=== PATIENT | male | born 1960 | race Caucasian/White ===

== ENCOUNTER 2018-06-22 08:17 | Observation (INO) ==
--- NOTE | 2018-06-22 08:26 | Emergency Department Note ---
Disposition Clinical Impression: Acute urinary retention Acute renal failure Qualifiers: Acute renal failure type: unspecified Qualified Code(s): N17.9 - Acute kidney failure, unspecified Disposition: Admitted As Inpatient Condition: Good Referrals: Meche Toribio MD [Family Provider] - Sudarshan Carpenter MD [Partnered Physician] - (Call for recheck for either Tuesday or early next week. Graff catheter will remain with a leg bag until this recheck.) Forms: ED Satisfaction Letter Time of Disposition: 09:38 General Adult HPI - General Chief complaint: ED General Medical Stated complaint: UTI Time Seen by Provider: 06/22/18 08:31 Source: patient Mode of arrival: private vehicle Limitations: no limitations Nursing Notes Reviewed: Yes Vital Signs Reviewed: Yes - History of Present Illness HPI Narrative: Patient relates for about 6 days he has had some frequency and urgency with urination. With this he has had a feeling of frequency and urgency of urination and ultimately incontinence. He states that he is "dribbling all the time". He reports a feeling of pressure to urinate and the pain he feels is a "fullness" in his lower abdomen that radiates towards the flanks. Denies any trouble like this before. He denies a fever or nausea or vomiting. Denies any diarrhea but states he has not moved his bowels for about 4 days. States he is passing gas. Denies weakness, dizziness or diaphoresis. He is noted that his lower abdomen is getting more full and firm. Denies any other recent change of medications other than he went to urgent care 6 days ago and was started on Cipro for possible UTI. Onset (ago): day(s) (6) Location: abdomen Radiation: flank Pain Severity: moderate Quality: aching, other (Pressure) Consistency: constant, Worsening Improves with: nothing Worsens with: other (Urination) Associated symptoms: Denies: confusion, chest pain, cough, diaphoresis, fever/ chills, headaches, loss of appetite, malaise, nausea/vomiting, rash, seizure, shortness of breath, syncope, weakness Treatments Prior to Arrival: other (Antibiotics) - Related Data Home Medications Medication Instructions Recorded Confirmed Ciprofloxacin HCl [Cipro] 500 mg PO BID 06/22/18 06/22/18 Lisinopril [Zestril] 10 mg PO DAILY 06/22/18 06/22/18 Montelukast [Singulair] 10 mg PO DAILY 06/22/18 06/22/18 Allergies Allergy/AdvReac Type Severity Reaction Status Date / Time naproxen [From Naprosyn] Allergy Anaphylaxis Verified 06/22/18 08:19 All systems ED: reviewed and negative except as stated. Past Medical History - Past Medical History Attestation: Yes The following information was validated with the patient. Source: patient, old records reviewed, nursing notes reviewed Medical history: Reports: arthritis (DJD, rheumatoid arthritis), COPD, GERD, hyperlipidemia (Diet-controlled), hypertension, kidney stones, migraine, seizures (All seizure medicine and seizure-free greater than 10 years), other ( Benign prostatic hypertrophy). Denies: coronary artery disease, DVT, diabetes, pulmonary embolus Surgical history: Reports: tonsilectomy, other (Colonic polypectomy, lymph node excision). Denies: angioplasty/stent (Cardiac catheter 2009, normal) Psychiatric history: Reports: no psych history - Social History Smoking Status: Former smoker Alcohol use: Reports: none Drug use: Reports: none Physical Exam - General Limitations: no limitations General appearance: alert, in no apparent distress - Head Head exam: atraumatic, normocephalic, normal inspection - Eye Eye exam: Present: normal appearance, PERRL, EOMI. Absent: scleral icterus, conjunctival injection - ENT ENT exam: normal exam, normal oropharynx, mucous membranes moist - Neck Neck exam: Present: normal inspection, full ROM, trachea midline - Chest Chest inspection: Present: normal inspection, symmetric chest wall rise - Respiratory Respiratory exam: Present: normal lung sounds bilaterally. Absent: respiratory distress, wheezes, prolonged expiratory phase - Cardiovascular Cardiovascular exam: Present: regular rate, normal rhythm, normal heart sounds. Absent: tachycardia - Abdominal Exam Abdominal exam: Present: soft, tenderness (Suprapubic), normal bowel sounds, mass (Patient is firm across lower abdomen up to the area of the umbilicus. This feels most consistent with an enlarged/distended bladder.). Absent: distention, guarding, rebound, rigidity, Deluca's sign, tenderness at McBurney' s Point, pulsatile mass, hernia - Extremities Exam Extremities exam: Present: normal inspection, full ROM, normal capillary refill. Absent: tenderness, pedal edema - Expanded Lower Extremity Exam Neurovascular/Tendon exam: Present: normal capillary refill. Absent: motor deficit, sensory deficit, tendon deficit Gait: observed and normal - Back Exam Back exam: Present: normal inspection, full ROM. Absent: tenderness, CVA tenderness (R), CVA tenderness (L) - Neurological Exam Neurological exam: Present: alert, oriented X3, normal gait - Psychiatric Psychiatric exam: Present: normal affect, normal mood - Skin Skin exam: Present: warm, dry, intact, normal color. Absent: diaphoresis, pallor Course Course Narrative: 0840: Patient was able to produce a small urine sample for us. Subsequent to this, a bladder scan records greater than 1000 mL of retained urine. A Graff catheter has been ordered and baseline CBC and chemistries to assess his renal function. 0935: Patient does demonstrate acute renal failure likely secondary to the obstructive uropathy. I recommended we start IV fluids, observed and rechecked chemistries tomorrow morning to show that he is showing improvement. Given his acute renal failure, his ciprofloxacin has been held. He should have an adequate circulating concentration to provide coverage for the next couple days. A page has been placed to Dr. Durbin for this purpose. Vital Signs Temperature 98.6 F 06/22/18 08:21 Pulse Rate 90 06/22/18 08:21 Respiratory Rate 16 06/22/18 08:21 Blood Pressure 136/84 06/22/18 08:21 O2 Sat by Pulse Oximetry 95 06/22/18 08:21 Temperature 98.6 F 06/22/18 08:21 Pulse Rate 90 06/22/18 08:21 Respiratory Rate 16 06/22/18 08:21 Blood Pressure 136/84 06/22/18 08:21 O2 Sat by Pulse Oximetry 95 06/22/18 08:21 Oxygen Delivery Oxygen Delivery Room Air Medical Decision Making - Medical Records Medical records reviewed: Yes I reviewed the patient's medical records. - Lab Data Lab results reviewed: Yes I reviewed the patient's lab results. Result diagrams: 06/22/18 09:07 06/22/18 09:07 Lab Results 06/22/18 06/22/18 06/22/18 Range/Units 08:40 09:07 09:07 WBC 14.6 H (4.3-11.1) K/mcL RBC 4.84 (4.19-5.50) M/mcL Hgb 14.1 (12.9-16.9) g/dL Hct 40.4 (37.5-50.1) % MCV 83.5 (83.0-100.0) fL MCH 29.1 (28.0-33.3) pg MCHC 34.9 (31.6-35.5) g/dL RDW 12.8 (11.5-14.5) % Plt Count 241 (140-400) K/mcL MPV 8.7 L (9.4-12.4) fL Immature Gran % 0.9 (0-4) % Seg Neutrophils % 85.9 % Lymphocytes % 3.9 % Monocytes % 8.4 % Eosinophils % 0.5 % Basophils % 0.4 % Neutrophils # 12.5 H (1.6-8.9) K/mcL Lymphocytes # 0.6 (0.6-4.6) K/mcL Monocytes # 1.2 (0.0-1.3) K/mcL Eosinophils # 0.1 (0.0-0.6) K/mcL Basophils # 0.1 (0.0-0.2) K/mcL Sodium 131 L (136-145) mEq/L Potassium 4.4 (3.5-5.1) mEq/L Chloride 96 L (98-107) mEq/L Carbon Dioxide 24 (23-29) mEq/L BUN 50 H (6-20) mg/dL Creatinine 3.48 H (0.70-1.30) mg/dL Est GFR ( Amer) 22 L (> 60) Est GFR (Non-Af Amer) 18 L (> 60) BUN/Creatinine Ratio 14 (6-26) Glucose 125 H (70-105) mg/dL Calculated Osmolality 287 (280-300) Calcium 9.3 (8.6-10.3) mg/dL Urine Color Yellow (Yellow) Urine Clarity Turbid A (Clear) Urine pH 5.0 (5.0-8.0) pH Units Ur Specific [place] 1.015 (1.010-1.025) Urine Protein 30 H (Neg-Trace) mg/dL Urine Glucose (UA) 100 H (Normal) mg/dL Urine Ketones Negative (Negative) mg/dL Urine Blood Moderate H (Negative) Urine Nitrite Positive A (Negative) Urine Bilirubin Small H (Negative) Urine Urobilinogen Normal (Normal) mg/dL Ur Leukocyte Esterase Negative (Negative) Urine Microscopic RBC TNTC H (0-3) per hpf Urine Microscopic WBC 0-3 (0-3) per hpf Ur Squamous Epith Cells Few (None-Few) per lpf Urine Bacteria Few (None-Few) per hpf Ur Culture Indicated? YES A (NO)
[2018-06-22 08:44] LABS: Bilirubin,Urine Small (Negative); Blood,Urine Moderate (Negative); Clarity,Urine Turbid (Clear); Color,Urine Yellow (Yellow); Glucose,Urine (UA) 100 mg/dL (Normal); Ketones,Urine Negative (Negative); Leukocyte Esterase,Urine Negative (Negative); Nitrite,Urine Positive (Negative); Protein,Urine 30 mg/dL (Neg-Trace); Specific Gravity,Urine 1.015 (1.010-1.025); Urobilinogen,Urine Normal (Normal)
[2018-06-22 08:59] LABS: Bacteria,Urine Few per hpf (None-Few); RBC,Urine TNTC per hpf (0-3); Squamous Epithelial Cell,Urine Few per lpf (None-Few); WBC,Urine 0-3 per hpf (0-3)
[2018-06-22 09:16] LABS: Basophils # 0.1 K/mcL (0.0-0.2); Basophils % 0.4 %; Eosinophils # 0.1 K/mcL (0.0-0.6); Eosinophils % 0.5 %; Hematocrit 40.4 % (37.5-50.1); Hemoglobin 14.1 g/dL (12.9-16.9); Immature Granulocytes % 0.9 % (0-4); Lymphocytes # 0.6 K/mcL (0.6-4.6); Lymphocytes % 3.9 %; Mean Corpuscular HGB Conc 34.9 g/dL (31.6-35.5); Mean Corpuscular Hemoglobin 29.1 pg (28.0-33.3); Mean Corpuscular Volume 83.5 fL (83.0-100.0); Mean Platelet Volume 8.7 fL (9.4-12.4); Monocytes # 1.2 K/mcL (0.0-1.3); Monocytes % 8.4 %; Neutrophils # 12.5 K/mcL (1.6-8.9); Platelet Count 241 K/mcL (140-400); Red Blood Count 4.84 M/mcL (4.19-5.50); Red Cell Distribution Width 12.8 % (11.5-14.5); Segmented Neutrophils % 85.9 %
[2018-06-22 09:31] LABS: Calcium 9.3 mg/dL (8.6-10.3); Potassium 4.4 mEq/L (3.5-5.1)
[2018-06-22] MEDS ORDERED: 0.9 % Sodium Chloride 1,000 ML IVC ONE (09:35)
[2018-06-22] MEDS ORDERED: 0.9 % Sodium Chloride 1,000 ML IVC SCH (09:45)
[2018-06-22] MEDS ORDERED: Naloxone 0.4 MG/ML INJ IVP PRN (11:58)
[2018-06-22] MEDS ORDERED: 0.9 % Sodium Chloride 1,000 ML ONE (12:06)
[2018-06-22] MEDS: 0.9 % Sodium Chloride 1,000 ML IVC SCH ×2 (12:21→20:58)
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
[2018-06-22] MEDS ORDERED: Albuterol 2.5 MG/3 ML NEBULIZER IH PRN (17:31)
[2018-06-22] MEDS: cefTRIAXone 1,000 MG in Water for inj. (sterile) 20 ML 10 ML IVP SCH (18:30)
[2018-06-22] MEDS ORDERED: Acetaminophen 325 MG TABLET PO PRN (19:43)
[2018-06-22] MEDS: Lactobacillus 1 EACH CAP.SPRINK PO SCH (20:59)
[2018-06-23] MEDS: 0.9 % Sodium Chloride 1,000 ML IVC SCH (05:14)
[2018-06-23 06:36] LABS: Basophils # 0.1 K/mcL (0.0-0.2); Eosinophils # 0.2 K/mcL (0.0-0.6); Eosinophils % 2.3 %; Hematocrit 35.2 % (37.5-50.1); Hemoglobin 11.9 g/dL (12.9-16.9); Immature Granulocytes % 1.3 % (0-4); Lymphocytes # 1.1 K/mcL (0.6-4.6); Lymphocytes % 12.7 %; Mean Corpuscular HGB Conc 33.8 g/dL (31.6-35.5); Mean Corpuscular Volume 85.6 fL (83.0-100.0); Mean Platelet Volume 9.1 fL (9.4-12.4); Monocytes # 0.9 K/mcL (0.0-1.3); Monocytes % 10.1 %; Neutrophils # 6.2 K/mcL (1.6-8.9); Platelet Count 206 K/mcL (140-400); Red Blood Count 4.11 M/mcL (4.19-5.50); Red Cell Distribution Width 13.1 % (11.5-14.5); Segmented Neutrophils % 72.6 %
[2018-06-23 06:57] LABS: BUN/Creatinine Ratio 19 (6-26); Blood Urea Nitrogen 24 mg/dL (6-20); Calcium 8.2 mg/dL (8.6-10.3); Carbon Dioxide 26 mEq/L (23-29); Chloride 106 mEq/L (98-107); Glucose 111 mg/dL (70-105); Osmolality,Calculated 291 (280-300); Potassium 4.2 mEq/L (3.5-5.1); Sodium 138 mEq/L (136-145); eGFR For Non-African Americans 58 (> 60)
[2018-06-23 06:59] LABS: Chol/HDL Ratio 5.1 (0-4.9)
[2018-06-23] MEDS: Lactobacillus 1 EACH CAP.SPRINK PO SCH (09:12)
[2018-06-23] MEDS: cefTRIAXone 1,000 MG in Water for inj. (sterile) 20 ML 10 ML IVP SCH (09:13)
--- NOTE | 2018-06-23 10:56 | Discharge Summary ---
Date of Encounter: 06/23/18 Time of Encounter: 10:45 - Discharge Diagnosis (1) Acute urinary retention Priority: Primary Status: Acute (2) Acute renal failure Priority: Secondary Status: Acute Qualifiers: Acute renal failure type: unspecified Qualified Code(s): N17.9 - Acute kidney failure, unspecified (3) COPD (chronic obstructive pulmonary disease) Priority: Secondary Status: Chronic Qualifiers: COPD type: unspecified COPD Qualified Code(s): J44.9 - Chronic obstructive pulmonary disease, unspecified (4) Hypertension Priority: Secondary Status: Chronic Qualifiers: Hypertension type: essential hypertension Qualified Code(s): I10 - Essential (primary) hypertension (5) Neutrophilic leukocytosis Priority: Secondary Status: Resolved Hospital course: Mr. Pérez is a 58 year old male who came to emergency room stating he had 6 day history of urinary frequency and urgency. He reports going to a local urgent care 3 days earlier and received a prescription for antibiotic for UTI. His symptoms did not improve so he came to emergency room today. He was found to have bladder distention with over 2000 mL's urine present on catheterization. He had azotemia with BUN and creatinine 50 and 3.48 respectively. He was admitted to [facility] floor for observation and ongoing care needs. Initial orders were written by the emergency room physician. I saw him on June 22 and performed a history and physical. He had significant improvement in azotemia with BUN and creatinine decreasing to 24 and 1.27 respectively with estimated GFR 58 by day of discharge. He was started on Rocephin empirically for leukocytosis with left shift. Leukocytosis normalized by the following day. He will continue with antibiotic and probiotic for 3 additional days at discharge. He will be started on Flomax. There were no other new problems and on June 23 I felt he was stable for discharge home. He will follow with urologist within 1 week. He will see his PCP Dr. Toribio within 1 week. - Time Spent with Patient Total time spent providing and/or coordinating discharge services: - Discharge Medications Prescriptions: Cefuroxime PO [Ceftin] 500 mg PO Q12HR #6 tablet Lactobacillus [Culturelle] 1 each PO BID #6 cap.sprink Tamsulosin [Flomax] 0.4 mg PO DAILY #30 cap.er.24h Home Medications: Ciprofloxacin HCl [Cipro] 500 mg PO BID 06/22/18 [History] Lisinopril [Zestril] 10 mg PO DAILY 06/22/18 [History] Montelukast [Singulair] 10 mg PO DAILY 06/22/18 [History] Cefuroxime PO [Ceftin] 500 mg PO Q12HR #6 tablet 06/23/18 [Rx] Lactobacillus [Culturelle] 1 each PO BID #6 cap.sprink 06/23/18 [Rx] Tamsulosin [Flomax] 0.4 mg PO DAILY #30 cap.er.24h 06/23/18 [Rx] Allergies/Adverse Reactions: 3 Allergy/AdvReac Type Severity Reaction Status Date / Time naproxen [From Naprosyn] Allergy Anaphylaxis Verified 06/22/18 08:19 Date of admission: 06/22/18 09:49 Primary care physician: Anjel Toribio M.D. - Constitutional Vitals: Temp Pulse Resp BP Pulse Ox 98.5 F 61 18 106/69 94 06/23/18 06:46 06/23/18 06:46 06/23/18 06:46 06/23/18 06:46 06/23/18 06:46 - Patient Status Disposition: Home, Self-Care Condition: Good - Discharge Instructions Follow Up With: NONE,PCP [Primary Care Provider] - 1 week Meche Toribio MD [Family Provider] - 1 week Sudarshan Carpenter MD [Partnered Physician] - 1 week - Diet and Activity Activity: resume usual activities as tolerated Diet: advance to your usual diet
[2018-06-23 11:27] VITALS: BP 105/69
== END 2018-06-23 14:05 | disposition home or self-care (01) ==
LOC: EMEROOPIK 08:17 → INPPIK 08:17
PROVIDERS: ADMIT Internal Medicine; ATTEND Internal Medicine